=== PATIENT | male | born 1965 | race African-American/Black ===

== ENCOUNTER 2024-01-14 10:01 | Outpatient (AMB) | payer MEDICARE, MEDICAID, SELFPAY ==
--- NOTE | 2024-01-14 10:03 | A.OFFVIS_ITS ---
Intake Vital Signs 01/14/24 10:14 Height 5 ft 10 in Weight 176 lb 4 oz BMI 25.3 BP 115/68 Blood Pressure Location Lt brachial Position Sitting Pulse 90 Pulse Source Pulse Oximeter Pulse Oximetry (%) 96 Oxygen Delivery Method Room Air Intake Visit Reasons: [id number]-ESH Systems Support Officer Required: No Accompanied by: Self / Same As Patient Allergies No Known Allergies Allergy (Verified 01/14/24 10:16) Medication List - Last Reconciled 01/14/24 by TOM Luis atorvastatin 40 mg PO DAILY citalopram 40 mg PO DAILY insulin glargine (Lantus U-100 Insulin) 20 units subcut DAILY insulin lispro (Humalog U-100 Insulin) 1 sliding scale dose subcut USEASDIRECTD lisinopril 20 mg PO DAILY methadone 10 mg PO DAILY HPI HPI Comments History of Present Illness Details Right-handed 58-yr-old male presents to re-establish care for tx of his BLE neuropathy. Pt was last seen by us several years ago PNS. Since the last time we saw him, he notes that he had not been managing his diabetes well, HgA1C was elevated > 9%, but now improving- the last was approx 8%. Review of recent labs, from [facility]- showed anemia. Pt states he has had a recent colonoscopy which was reassuirng. Pt reports he is having increased BLE nocturnal leg cramps, which wakes him up out of sleep and lasts for at least night. When it occurs, he can barely walk. This occurs once every 2 weeks. He numbness and pins/needles in his toes and back of his calves. Can feel like a rash is there, but no rash is present. For some time it went away, but it has returned. Now it is more intense. It is worse when at rest- sitting. Compression socks helps. This occurs all day x's 5 days per week. He also notes Right 4th, 5th finger numbness- like he has rubber bands on my fingers . This is constant, started a while ago. He tries to eat and drink well. 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 And patient denies: weakness, usual neck or back pain, restlessness, GERD, PPI use. PFSH Medical History Tobacco dependence Impotence History of alcohol dependence History of intravenous drug use Surgical History (Updated 01/14/24 @ 10:10 by Amber Dickson MA) H/O colonoscopy S/P appendectomy Family History Mother Diabetes Heart disease Sister Diabetes Father Myocardial infarct Social History Alcohol intake: never Patient Tobacco Use Status: Current everyday Tobacco user Questionnaire [place] Sleepiness Scale Questions Sitting and reading: high chance of dozing Watching TV: high chance of dozing Sitting inactive in a theater, movie etc.: high chance of dozing As a passenger in a car for an hour without break: high chance of dozing Lying down in the afternoon when circumstances permit: high chance of dozing Sitting and talking to someone: moderate chance of dozing Sitting quietly after lunch without alcohol: high chance of dozing In a car, while stopped for a few minutes in the traffic: would never doze ESS < 10: normal, ESS > 12: pathologic: 20 Review of Systems Const All systems reviewed & are unremarkable except as noted in HPI and below Physical Exam Vital Signs: Last Vital Signs Pulse 90 01/14/24 10:14 BP 115/68 01/14/24 10:14 Pulse Ox 96 01/14/24 10:14 Oxygen Delivery Method Room Air 01/14/24 10:14 BMI result Body Mass Index 25.3 Const General: cooperative and no acute distress Orientation/consciousness: patient oriented x3 HEENT Head: Yes normocephalic Resp Effort & Inspection: normal respiratory effort and able to speak in complete sentences Neuro Other: Decreased right 4th/5th finger sensation. Negative BUE Tinel, [place], Medial compression test. General: patient oriented x3 and CN's II-XI intact bilaterally Gait exam (Neuro): Normal gait present Motor exam (neuro): 5/5 motor strength present throughout Deep tendon reflexes (DTR's): Right triceps reflex intensity grade: 2+, Left triceps reflex intensity grade: 2+, Rt Biceps (C5, C6): 2+, Left biceps reflex intensity grade: 2+, Right brachioradialis reflex intensity grade: 2+, Left brachioradialis reflex intensity grade: 2+, Right patellar reflex intensity grade: 1+ and Left patellar reflex intensity grade: 1+ Psych Appearance: grossly normal Mental Status: mental status grossly normal Speech and movement: Normal speech and movement present Affect: normal affect Attitude: cooperative Thought process: Normal thought process present Thought content: Normal thought content present Insight: Good insight present (Psych) Assessment & Plan Assessment & Plan (1) Neuropathy: Code(s): G62.9 - Polyneuropathy, unspecified (2) Nocturnal leg cramps: Code(s): G47.62 - Sleep related leg cramps (3) Excessive daytime sleepiness: Code(s): G47.19 - Other hypersomnia (4) Sleep difficulties: Code(s): G47.9 - Sleep disorder, unspecified (5) Snoring: Code(s): R06.83 - Snoring (6) Anemia: Code(s): D64.9 - Anemia, unspecified (7) Ulnar neuropathy: Code(s): G56.20 - Lesion of ulnar nerve, unspecified upper limb Plan Will check labs for common etiologies of leg cramps and neuropathy, in setting of chronic anemia. Will request previous EMG/NCS results from [place]. Try to add stretching and [id number] exercises in the evening prior to bed. Discussed importance of optimizing his diabetic control. Trial magnesium 400 mg p.o. q.h.s.. If ineffective, may retry gabapentin 100-300 mg q.h.s. Patient also advised to undergo HST to assess for sleep apnea. Case discussed with Dr. Alvarado Orders: Orders Ferritin Today D64.9 - Anemia, unspecified, E11.9 - Type 2 diabetes mellitus without complications, G47.62 - Sleep related leg cramps, G62.9 - Polyneuropathy, unspecified, R53.83 - Other fatigue Homocysteine Today D64.9 - Anemia, unspecified, E11.9 - Type 2 diabetes mellitus without complications, G47.62 - Sleep related leg cramps, G62.9 - Polyneuropathy, unspecified, R53.83 - Other fatigue Vitamin B12 and Folate Today D64.9 - Anemia, unspecified, E11.9 - Type 2 diabetes mellitus without complications, G47.62 - Sleep related leg cramps, G62.9 - Polyneuropathy, unspecified, R53.83 - Other fatigue Magnesium Today D64.9 - Anemia, unspecified, E11.9 - Type 2 diabetes mellitus without complications, G47.62 - Sleep related leg cramps, G62.9 - Polyneuropathy, unspecified, R53.83 - Other fatigue Methylmalonic Acid Today D64.9 - Anemia, unspecified, E11.9 - Type 2 diabetes mellitus without complications, G47.62 - Sleep related leg cramps, G62.9 - Polyneuropathy, unspecified, R53.83 - Other fatigue Complete Blood Count Auto Diff Today D64.9 - Anemia, unspecified, E11.9 - Type 2 diabetes mellitus without complications, G47.62 - Sleep related leg cramps, G62.9 - Polyneuropathy, unspecified, R53.83 - Other fatigue Comprehensive Met. Panel Today D64.9 - Anemia, unspecified, E11.9 - Type 2 diabetes mellitus without complications, G47.62 - Sleep related leg cramps, G62.9 - Polyneuropathy, unspecified, R53.83 - Other fatigue TSH reflex Free T4 Today D64.9 - Anemia, unspecified, E11.9 - Type 2 diabetes mellitus without complications, G47.62 - Sleep related leg cramps, G62.9 - Polyneuropathy, unspecified, R53.83 - Other fatigue Creatine Kinase Total Today D64.9 - Anemia, unspecified, E11.9 - Type 2 diabetes mellitus without complications, G47.62 - Sleep related leg cramps, G62.9 - Polyneuropathy, unspecified, R53.83 - Other fatigue CRP High Sensitivity Today D64.9 - Anemia, unspecified, E11.9 - Type 2 diabetes mellitus without complications, G47.62 - Sleep related leg cramps, G62.9 - Polyneuropathy, unspecified, R53.83 - Other fatigue Erythrocyte Sedimentation Rate Today D64.9 - Anemia, unspecified, E11.9 - Type 2 diabetes mellitus without complications, G47.62 - Sleep related leg cramps, G62.9 - Polyneuropathy, unspecified, R53.83 - Other fatigue Hemoglobin A1c Today D64.9 - Anemia, unspecified, E11.9 - Type 2 diabetes mellitus without complications, G47.62 - Sleep related leg cramps, G62.9 - Polyneuropathy, unspecified, R53.83 - Other fatigue Folate Today D64.9 - Anemia, unspecified, E11.9 - Type 2 diabetes mellitus without complications, G47.62 - Sleep related leg cramps, G62.9 - Polyneuropathy, unspecified, R53.83 - Other fatigue RT home sleep study Today G47.19 - Other hypersomnia, G47.9 - Sleep disorder, unspecified, R06.83 - Snoring Medications: New magnesium oxide may hold for loose stools 400 mg PO BEDTIME 30 days 30 tabs 6RF gabapentin 100 - 300 mg (1 - 3 x 100 mg) PO BEDTIME 30 days 90 caps 3RF Coding Level of Care Code New Pt Level 4 (64354) Diagnoses Neuropathy G62.9 Nocturnal leg cramps G47.62 Excessive daytime sleepiness G47.19 Sleep difficulties G47.9 Snoring R06.83 Anemia D64.9 Ulnar neuropathy G56.20
[2024-01-14 10:14] VITALS: BP 115/68; PULSE 90; O2SAT 96; BMI 25.3
== END 2024-01-14 11:19 | disposition home or self-care (01) ==
PROVIDERS: PCP Internal Medicine; Visit Provider Nurse Practitioner Family
DX: G62.9 Polyneuropathy, unspecified (principal); G47.62 Sleep related leg cramps; G47.19 Other hypersomnia; G47.9 Sleep disorder, unspecified; R06.83 Snoring; D64.9 Anemia, unspecified; G56.20 Lesion of ulnar nerve, unspecified upper limb
CPT/HCPCS: 99204

== ENCOUNTER → 2024-01-14 10:01 | Outpatient (BNVA) | payer MEDICARE, MEDICAID, SELFPAY | PROVIDERS: PCP Internal Medicine; Visit Provider Nurse Practitioner Family | DX: G62.9 Polyneuropathy, unspecified (principal); G47.62 Sleep related leg cramps; G47.19 Other hypersomnia; G47.9 Sleep disorder, unspecified; G56.20 Lesion of ulnar nerve, unspecified upper limb; R06.83 Snoring; D64.9 Anemia, unspecified | CPT/HCPCS: 99202 ==

== ENCOUNTER → 2024-03-01 11:54 | Outpatient (REF) | payer MEDICARE, MEDICAID, SELFPAY | LOC: HO.SL 11:54 | PROVIDERS: PCP Internal Medicine; Visit Provider Nurse Practitioner Family | DX: G47.33 Obstructive sleep apnea (adult) (pediatric) (principal); G47.19 Other hypersomnia; R06.83 Snoring | CPT/HCPCS: 95806 ==

== ENCOUNTER → 2024-03-01 13:14 | Outpatient (BNV) | payer MEDICARE, MEDICAID, SELFPAY | PROVIDERS: PCP Internal Medicine; Visit Provider Psychiatry & Neurology Neurology | DX: G47.33 Obstructive sleep apnea (adult) (pediatric) (principal) | CPT/HCPCS: 95806 ==

== ENCOUNTER 2024-07-15 11:25 | Outpatient (AMB) | payer MEDICARE, MEDICAID, SELFPAY ==
--- NOTE | 2024-07-15 11:41 | A.OFFVIS_ITS ---
Vital Signs 07/15/24 11:44 Height 5 ft 10 in Weight 176 lb BMI 25.3 Pulse 76 Pulse Source Pulse Oximeter Pulse Oximetry (%) 98 Oxygen Delivery Method Room Air Intake Visit Reasons: Follow up Polyneuropathy Intake Note: Patient presents for follow up.having issues with cpap filter was told not to use it until he has test done nest week Allergies No Known Allergies Allergy (Verified 01/14/24 10:16) Medication List - Last Reconciled 07/15/24 by TOM Luis atorvastatin 40 mg PO DAILY citalopram 40 mg PO DAILY gabapentin 100 - 300 mg (1 - 3 x 100 mg) PO BEDTIME 30 days insulin glargine (Lantus U-100 Insulin) 20 units subcut DAILY insulin lispro (Humalog U-100 Insulin) 1 sliding scale dose subcut USEASDIRECTD lisinopril 20 mg PO DAILY magnesium oxide 400 mg PO BEDTIME 30 days methadone 10 mg PO DAILY HPI Comments Details: Right-handed 58-yr-old male presents for f/u of BLE neuropathy. Since last visit, pt states his BLE cramping and pins and needles is improved. Denies weakness. States Gapabentin helps- taking 2-6/day about 4 times a week. Compression socks helps He has not done labs yet. We have not rec'd previous BLE EMG/NCS reports yet. Home sleep study showed moderate obstructive sleep apnea w/ AHI 24/hr and O2 je 87%. Since pt started APAP 5-20 cmH2O, however compliance data reveals PAP tx induced central sleep apneas and increased AHI thus pt has been scheduled for an in-lab PSG PAP titration study to determine optimal tx setting. [address], [facility] Email: [email or web address] Compliance Report Usage 05/22/2024 - 06/20/2024 Usage days 16/30 days (53%) >= 4 hours 14 days (47%) < 4 hours 2 days (7%) Average usage (days used) 4 hours 59 minutes Median usage (days used) 5 hours 5 minutes Total used hours (value since last reset - 06/20/2024) 171 hours AirSense 11 AutoSet Serial number [id number] Mode AutoSet Min Pressure 5 cmH2O Max Pressure 20 cmH2O EPR Fulltime EPR level 2 Response Standard Therapy Pressure - cmH2O Median: 7.8 95th percentile: 10.9 Maximum: 12.1 Leaks - L/min Median: 9.5 95th percentile: 38.3 Maximum: 53.8 Events per hour AI: 46.4 HI: 0.7 AHI: 47.1 Apnea Index Central: 38.6 Obstructive: 3.6 Unknown: 4.1 RERA Index 0.1 01/14/2024 Initial HPI: Pt reports he is having increased BLE nocturnal leg cramps, which wakes him up out of sleep and lasts for at least night. When it occurs, he can barely walk. This occurs once every 2 weeks. He numbness and pins/needles in his toes and back of his calves. Can feel like a rash is there, but no rash is present. For some time it went away, but it has returned. Now it is more intense. It is worse when at rest- sitting. Compression socks helps. This occurs all day x's 5 days per week. He also notes Right 4th, 5th finger numbness- like he has rubber bands on my fingers . This is constant, started a while ago. He tries to eat and drink well. 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 And patient denies: weakness, usual neck or back pain, restlessness, GERD, PPI use. PFSH Medical History Tobacco dependence Impotence History of alcohol dependence History of intravenous drug use Surgical History H/O colonoscopy S/P appendectomy Family History Mother Diabetes Heart disease Sister Diabetes Father Myocardial infarct Social History Alcohol intake: never Patient Tobacco Use Status: Current everyday Tobacco user Physical Exam Vital Signs: Last Vital Signs Pulse 76 07/15/24 11:44 Pulse Ox 98 07/15/24 11:44 Oxygen Delivery Method Room Air 07/15/24 11:44 BMI result Body Mass Index 25.3 Const General: cooperative and no acute distress Orientation/consciousness: patient oriented x3 Resp Effort & Inspection: normal respiratory effort and able to speak in complete sentences Neuro General: patient oriented x3 and CN's II-XI intact bilaterally Gait exam (Neuro): Normal gait present Motor exam (neuro): 5/5 motor strength present throughout Psych Appearance: grossly normal Mental Status: mental status grossly normal Speech and movement: Normal speech and movement present Affect: normal affect Attitude: cooperative Assessment & Plan Assessment & Plan (1) Moderate obstructive sleep apnea: Code(s): G47.33 - Obstructive sleep apnea (adult) (pediatric) Category: Medical (2) Treatment-emergent central sleep apnea: Code(s): G47.39 - Other sleep apnea Category: Medical (3) Neuropathy: Code(s): G62.9 - Polyneuropathy, unspecified Category: Medical (4) Nocturnal leg cramps: Code(s): G47.62 - Sleep related leg cramps Category: Medical (5) Excessive daytime sleepiness: Code(s): G47.19 - Other hypersomnia Category: Medical Plan Again check labs for common etiologies of leg cramps and neuropathy, in setting of chronic anemia- orders given to pt. Will again request previous EMG/NCS results from [place]. Stretch and do [id number] exercises in the evening prior to bed. Continue magnesium 400 mg p.o. q.h.s.. Will adjust gabapentin from 100-300 mg q.h.s. to 200mg tis prn. Reviewed HST- moderate BOBBY and recent PAP compliance report showing elevated AHI and tx induced CSA- pt advised to under in-lab PAP titration study to determine optimal PAP tx settings. Medications: Changed From gabapentin 100 - 300 mg (1 - 3 x 100 mg) PO BEDTIME 30 days 90 caps 3RF To gabapentin 200 mg (2 x 100 mg) PO TID 30 days 180 caps 6RF Refilled magnesium oxide may hold for loose stools 400 mg PO BEDTIME 30 days 30 tabs 6RF Coding Level of Care Code Est Pt Level 4 (90012) Diagnoses Moderate obstructive sleep apnea G47.33 Treatment-emergent central sleep apnea G47.39 Neuropathy G62.9 Nocturnal leg cramps G47.62 Excessive daytime sleepiness G47.19
[2024-07-15 11:44] VITALS: PULSE 76; O2SAT 98; BMI 25.3
== END 2024-07-15 12:06 | disposition home or self-care (01) ==
PROVIDERS: PCP Internal Medicine; Visit Provider Nurse Practitioner Family
DX: G47.33 Obstructive sleep apnea (adult) (pediatric) (principal); G47.39 Other sleep apnea; G62.9 Polyneuropathy, unspecified; G47.62 Sleep related leg cramps; G47.19 Other hypersomnia
CPT/HCPCS: 99214

== ENCOUNTER → 2024-07-15 11:25 | Outpatient (BNVA) | payer MEDICARE, MEDICAID, SELFPAY | PROVIDERS: PCP Internal Medicine; Visit Provider Nurse Practitioner Family | DX: G62.9 Polyneuropathy, unspecified (principal); G47.62 Sleep related leg cramps; G47.19 Other hypersomnia; G47.33 Obstructive sleep apnea (adult) (pediatric); G47.39 Other sleep apnea | CPT/HCPCS: 99212 ==

== ENCOUNTER → 2024-07-20 20:30 | Outpatient (REF) | payer MEDICARE, MEDICAID, SELFPAY | LOC: HO.SL 20:30 | PROVIDERS: PCP Internal Medicine; Visit Provider Nurse Practitioner Family | DX: G47.39 Other sleep apnea (principal); G47.33 Obstructive sleep apnea (adult) (pediatric) | CPT/HCPCS: 95811 ==

== ENCOUNTER → 2024-07-20 21:41 | Outpatient (BNV) | payer MEDICARE, MEDICAID, SELFPAY | PROVIDERS: PCP Internal Medicine; Visit Provider Psychiatry & Neurology Neurology | DX: R06.83 Snoring (principal); G47.10 Hypersomnia, unspecified | CPT/HCPCS: 95811 ==